=== PATIENT | female | born 1925 | race Caucasian/White ===

== ENCOUNTER → 2016-06-12 | Outpatient (CLI) | payer MEDICARE, BC ==
--- NOTE | 2016-06-12 15:41 | RAD ---
PROCEDURE MRA head without contrast. HISTORY Resolved right-sided facial numbness, ongoing dizziness, hypertension TECHNIQUE 3D [id number] MR angiography was performed of the head. Contrast: None COMPARISON There is no previous similar exam available. Correlation is made with MRI brain exam May 14, 2016 [facility] FINDINGS Any determination of stenosis is based on NASCET criteria. Region of the PICAs was not included on this exam. 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 There is visualization of bilateral AICAs, probably tiny right intradural vertebral artery. There is visualization of segments of bilateral superior cerebellar arteries. There is small right posterior communicating artery, also tiny left posterior communicating artery. No significant anterior communicating artery is visualized. Small focus of increased flow related enhancement projecting inferiorly from the left ophthalmic internal carotid artery may be due to infundibulum of the left posterior communicating artery, left posterior communicating artery difficult to visualize in its entirety on this exam due to motion. IMPRESSION 1. 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 2. Small focus of increased flow related enhancement projecting inferiorly from the left ophthalmic internal carotid artery is favored to be due to an infundibulum of the left posterior communicating artery rather than aneurysm, the entirety of the left posterior communicating artery poorly visualized due to motion. Electronically signed by: Rosendo Martin MD (Jun 12, 2016 15:40:37)
== END | disposition home or self-care (01) ==
LOC: MRI 13:56
PROVIDERS: ATTEND Psychiatry & Neurology Neurology
DX: R93.0 Abnormal findings on diagnostic imaging of skull and head, not elsewhere classified (principal)
CPT/HCPCS: 70544